=== PATIENT | male | born 1945 | race Caucasian/White ===

== ENCOUNTER 2016-09-12 10:24 | Day surgery (SDC) | payer MEDICARE, BC ==
[2016-09-09 11:03] VITALS: BMI 47.1
[~2016-09-12 10:24] MED LIST: ALPRAZolam 0.25 MG TAB PO PRN; ALPRAZolam 0.5 MG TAB PO PRN; ASPIRIN 325 MG TAB PO STA; ATORVASTATIN 80 MG TAB PO STA; NITROGLYCERIN SL TABS 0.4 MG TAB SUBLINGUAL PRN; SODIUM CHLORIDE 0.9% 1,000 ML in EMPTY BAG 1 BAG IV ONE
[2016-09-12 11:41] LABS: Anisocytosis Slight; Basophils % (A) 0 %; CH 31.5; CHCM 33.3; Eosinophils # (A) 0.4 k/uL (0-0.7); Eosinophils % (A) 4 %; HCT 48.9 % (39.0-53.0); HDW 3.52; HGB 15.8 gm/dL (13.0-17.5); Luc # (Auto) 0.33; Luc % (Auto) 4; Lymphocytes # (A) 1.2 k/uL (1.0-4.8); Lymphocytes % (A) 13 %; MCH 30.7 pg (25.0-35.0); MCHC 32.3 g/dL (31.0-37.0); MCV 95.1 fL (80.0-100.0); Mean Platelet Volume 7.6; Monocytes # (A) 0.5 k/uL (0-1.0); Monocytes % (A) 6 %; Neutrophils # (A) 6.9 k/uL (1.3-7.7); Neutrophils % (A) 74 %; Poikilocytosis Slight; RBC 5.15 m/uL (4.30-5.90); RDW 17.1 % (11.5-15.5); WBC 9.3 k/uL (3.8-10.6); WBC (Perox) 9.52
[2016-09-12] MEDS ORDERED: MIDAZOLAM 2 MG/2 ML VIAL ONE (11:52)
[2016-09-12] MEDS ORDERED: VERAPAMIL 2.5 MG/ML 2 ML AMP ONE (11:53)
[2016-09-12] MEDS ORDERED: SODIUM CHLORIDE 0.9% (PF) 10 ML VIAL ONE (11:53)
[2016-09-12] MEDS ORDERED: HEPARIN SODIUM 1,000 UNIT/ML VIAL ONE (11:53)
[2016-09-12] MEDS ORDERED: LIDOCAINE 2% INJ 20 MG/ML (20 ML MDV) ONE (11:53)
[2016-09-12] MEDS ORDERED: diphenhydrAMINE 50 MG/ML 1 ML VIAL ONE (11:53)
[2016-09-12 11:58] LABS: Anion Gap 14 mmol/L; Blood Urea Nitrogen 26 mg/dL (9-20); Calcium 8.8 mg/dL (8.4-10.2); Carbon Dioxide 33 mmol/L (22-30); Chloride 94 mmol/L (98-107); Glucose 131 mg/dL (74-99); Non-African American GFR(MDRD) >60 (>60 ml/min/1.73 sqM); Potassium 3.9 mmol/L (3.5-5.1); Sodium 141 mmol/L (137-145)
[2016-09-12] MEDS ORDERED: MIDAZOLAM 2 MG/2 ML VIAL IV ONE (12:35)
[2016-09-12] MEDS ORDERED: diphenhydrAMINE 50 MG/ML 1 ML VIAL IVP ONE (12:35)
[2016-09-12] MEDS ORDERED: LIDOCAINE 2% INJ 20 MG/ML SQ ONE (12:36)
[2016-09-12] MEDS ORDERED: BIVALIRUDIN BOLUS 250 MG/50 ML IV ONE (13:08)
[2016-09-12] MEDS ORDERED: BIVALIRUDIN 250 MG in SODIUM CHLORIDE 0.9% 50 ML IV ONE (13:11)
[2016-09-12] MEDS ORDERED: CLOPIDOGREL 75 MG TAB ONE (13:14)
[2016-09-12] MEDS: niCARdipine Syringe (1,000 mcg/10 mL) INTRACORON ONE ×2 (13:15→13:19)
[2016-09-12] MEDS ORDERED: HYDROmorphone 2 MG/ML 1 ML SYRINGE ONE (13:21)
[2016-09-12] MEDS ORDERED: CLOPIDOGREL 75 MG TAB PO ONE (13:25)
[2016-09-12] MEDS ORDERED: HYDROmorphone 2 MG/ML 1 ML SYRINGE IV ONE (13:25)
[2016-09-12] MEDS ORDERED: ALBUTEROL NEBULIZED 2.5 MG/3 ML INHALATION PRN (13:31)
[2016-09-12] MEDS ORDERED: SYMBICORT 160-4.5 MCG INHALER INHALATION PRN (13:31)
[2016-09-12] MEDS ORDERED: IOHEXOL 350 MG/ML 100 ML BOTTLE INJ ONE (13:31)
[2016-09-12] MEDS ORDERED: NITROGLYCERIN SL TABS 0.4 MG TAB SUBLINGUAL PRN (13:32)
[2016-09-12] MEDS ORDERED: MAG HYDROX/AL HYDROX/SIMETH 30 ML CUP PO PRN (13:32)
[2016-09-12] MEDS ORDERED: ZOLPIDEM 5 MG TAB PO PRN (13:32)
[2016-09-12] MEDS ORDERED: RX INFO: IV CONTRAST WAS GIVEN 1 EACH MISC MISCELLANE PRN (13:32)
[2016-09-12] MEDS ORDERED: ATROPINE SULFATE 0.1 MG/ML 10ML SYRINGE IV PRN (13:32)
[2016-09-12] MEDS ORDERED: SODIUM CHLORIDE 0.9% 1,000 ML IV SCH (13:45)
[2016-09-12] MEDS ORDERED: HYDROmorphone 1 MG/ML 1 ML SYRINGE IVP STA (14:36)
[2016-09-12] MEDS: HYDROmorphone 1 MG/ML 1 ML SYRINGE IVP PRN ×2 (17:12→20:56)
[2016-09-12] MEDS: CARVEDILOL 3.125 MG TAB PO SCH (18:17)
[2016-09-12 18:35] VITALS: RESP 20
[2016-09-12] MEDS: GABAPENTIN 300 MG CAP PO SCH (20:56)
[2016-09-12] MEDS ORDERED: ATORVASTATIN 80 MG TAB PO SCH (21:00)
--- NOTE | 2016-09-12 22:07 | CC ---
DATE OF SERVICE: 09/12/2016 PERFORMING PHYSICIAN: Maco Downs M.D., fishing game w[employer]. PROCEDURES PERFORMED: 1. Selective left and right coronary angiogram. 2. Saphenous vein graft to left circumflex angiogram. 3. Left subclavian angiogram. 4. Aortic root angiogram. 5. Successful stenting of the saphenous vein graft to left circumflex using a 4.5 x 15 mm bare-metal stent, with good angiographic results. INDICATION: This is a pleasant 71-year-old gentleman with a known history of coronary artery disease and prior coronary artery bypass grafting with unknown details about the anatomy of the ( ) was experiencing progressive exertional dyspnea. He underwent a myocardial perfusion imaging stress test which showed lateral ischemia. He was scheduled to undergo a heart catheterization to rule out any severe underlying CAD. APPROACH: Right common femoral artery. COMPLICATIONS: None. LEVEL OF SEDATION: Moderate. PROCEDURE DESCRIPTION: After obtaining informed consent, the patient was brought to the cardiac slabber light. The right common femoral artery was cannulated using micropuncture technique. The micropuncture wire passed easily, then I placed a 6 English sheath in the right common femoral artery. Subsequently I did selective left and right coronary angiogram using JL4.5 and JR4 catheters. After that, I did SVG angiogram to left circumflex using the JR4 catheter. I tried engaging the SVG to RCA using multipurpose catheter, but I was unable. Then I did aortic root angiogram using a 6 English pigtail catheter, and I was unable to visualize any SVG to the RCA. I tried engaging the TROY, but the left subclavian was so tortuous that I was unable to reach the TROY, so I did selective left subclavian angiogram, which showed flow in the TROY. After reviewing everything, I decided to intervene on the SVG on the left circumflex. Please see separate paragraph for that. SELECTIVE CORONARY ANGIOGRAM: 1. The left main is a short left main and a large left main and seems to be angiographically normal. It bifurcates into the left circumflex and left anterior descending artery. 2. The left circumflex is 100% occluded proximally. 3. The LAD is 100% occluded proximally as well. 4. The RCA is 100% occluded proximally as well. CORONARY BYPASS ANGIOGRAM: 1. The SVG to the left circumflex is patent with critical disease involving the proximal to mid portion. 2. The TROY to LAD was not well visualized, but there is a flow in it. PERCUTANEOUS CORONARY INTERVENTION OF THE SAPHENOUS VEIN GRAFT TO LEFT CIRCUMFLEX: Anticoagulation was initiated using Angiomax. Subsequently I took JR4 guide and the graft was engaged. I used a Whisper wire to wire that graft. Subsequently I did direct stenting on the lesion using a 4.5 x ( ) mm stent, where the stent was positioned under fluoroscopy guidance, then it was deployed under 18 atmospheres for 30 seconds. The following angiogram showed good angiographic results. There was residual stenosis involving the distal anastomosis of the bypass of about 60%. I decided to leave it alone. CONCLUSION: 1. Severe triple-vessel coronary artery disease with occluded LAD, left circumflex and RCA. 2. Patent TROY to LAD. 3. Critical disease involving the SVG to left circumflex. 4. I was unable to visualize any vein graft to the right coronary artery. 5. Successful stenting of the SVG to left circumflex using a 4.5 x ( ) mm bare-metal stent, with good angiographic results. Post-procedure management will be: 1. Dual antiplatelet therapy. 2. Risk factor modification. 3. Followup with the patient.
[2016-09-12 22:30] LABS: Anisocytosis Slight; Basophils % (A) 0 %; CH 31.4; CHCM 32.6; Eosinophils # (A) 0.2 k/uL (0-0.7); Eosinophils % (A) 2 %; HCT 48.2 % (39.0-53.0); HDW 3.46; HGB 15.5 gm/dL (13.0-17.5); Hypochromasia Slight; Luc # (Auto) 0.34; Luc % (Auto) 3; Lymphocytes % (A) 8 %; MCHC 32.1 g/dL (31.0-37.0); MCV 96.6 fL (80.0-100.0); Macrocytosis Slight; Mean Platelet Volume 7.6; Monocytes # (A) 0.6 k/uL (0-1.0); Monocytes % (A) 5 %; Neutrophils # (A) 10.4 k/uL (1.3-7.7); Neutrophils % (A) 83 %; Poikilocytosis Slight; RBC 4.99 m/uL (4.30-5.90); RDW 17.1 % (11.5-15.5); WBC 12.6 k/uL (3.8-10.6); WBC (Perox) 12.71
[2016-09-13] MEDS: HYDROmorphone 1 MG/ML 1 ML SYRINGE IVP PRN ×2 (02:45→07:03)
[2016-09-13 06:21] LABS: Anisocytosis Slight; Basophils % (A) 0 %; CH 31.3; CHCM 32.4; Eosinophils # (A) 0.2 k/uL (0-0.7); Eosinophils % (A) 2 %; HCT 45.9 % (39.0-53.0); HDW 3.37; HGB 14.6 gm/dL (13.0-17.5); Hypochromasia Slight; Luc # (Auto) 0.33; Luc % (Auto) 3; Lymphocytes # (A) 0.8 k/uL (1.0-4.8); Lymphocytes % (A) 8 %; MCH 30.9 pg (25.0-35.0); MCHC 31.9 g/dL (31.0-37.0); Macrocytosis Slight; Mean Platelet Volume 7.5; Monocytes # (A) 0.7 k/uL (0-1.0); Monocytes % (A) 7 %; Neutrophils # (A) 8.2 k/uL (1.3-7.7); Neutrophils % (A) 80 %; RBC 4.73 m/uL (4.30-5.90); WBC 10.2 k/uL (3.8-10.6)
[2016-09-13 06:33] LABS: Anion Gap 13 mmol/L; Blood Urea Nitrogen 24 mg/dL (9-20); Carbon Dioxide 32 mmol/L (22-30); Chloride 95 mmol/L (98-107); Glucose 136 mg/dL (74-99); Non-African American GFR(MDRD) >60 (>60 ml/min/1.73 sqM); Potassium 3.5 mmol/L (3.5-5.1); Sodium 140 mmol/L (137-145)
[2016-09-13] MEDS: CARVEDILOL 3.125 MG TAB PO SCH (07:03)
[2016-09-13] MEDS: GABAPENTIN 300 MG CAP PO SCH (08:17)
[2016-09-13] MEDS ORDERED: ASPIRIN 81 MG CHEW PO SCH (09:00)
[2016-09-13] MEDS ORDERED: ISOSORBIDE MONONITRATE ER 30 MG TAB.ER.24H PO SCH (09:00)
[2016-09-13] MEDS ORDERED: ALLOPURINOL 300 MG TAB PO SCH (09:00)
[2016-09-13] MEDS ORDERED: HYDROcodone/APAP 5-325MG 1 EACH TAB PO PRN (09:40)
[2016-09-13] MEDS ORDERED: CALCIUM CARB-VIT D 500MG-200UN 1 EACH TAB PO SCH (12:00)
[2016-09-13] MEDS ORDERED: MULTIVITAMINS, THERA 1 EACH TAB PO SCH (12:00)
[2016-09-13] MEDS ORDERED: ASCORBIC ACID 500 MG TAB PO SCH (12:00)
[2016-09-13] MEDS ORDERED: CLOPIDOGREL 75 MG TAB PO SCH (12:00)
[2016-09-13 12:01] VITALS: BP 113/67; PULSE 82; TEMP 97.8
--- NOTE | 2016-09-13 21:59 | DS ---
DATE OF ADMISSION: 09/12/2016 DATE OF DISCHARGE: 09/13/2016 BRIEF HISTORY: This is a pleasant 77-year-old gentleman who is known to have CAD and prior CABG was experiencing exertional dyspnea. He underwent myocardial perfusion imaging stress test which showed anterolateral ischemia. He underwent heart catheterization yesterday which showed severe disease involving the SVG to LCx. He underwent successful stenting of that graft with a good angiographic result and without any complication. The procedure was performed from the right groin. He developed some right hematoma yesterday but seems to be better today. He is going to be discharged on dual antiplatelet therapy and I will follow up with the patient as an outpatient in a week.
== END 2016-09-13 12:45 | disposition home or self-care (01) ==
LOC: CATHCVL 10:24 → 6SEL 13:30 → CATHCVL 09-13 12:45
PROVIDERS: ATTEND Internal Medicine Interventional Cardiology
DX: I25.700 Atherosclerosis of coronary artery bypass graft(s), unspecified, with unstable angina pectoris (principal); I25.110 Atherosclerotic heart disease of native coronary artery with unstable angina pectoris; Z95.1 Presence of aortocoronary bypass graft; I25.82 Chronic total occlusion of coronary artery; R94.39 Abnormal result of other cardiovascular function study; E78.5 Hyperlipidemia, unspecified; R60.0 Localized edema; E66.3 Overweight; J44.9 Chronic obstructive pulmonary disease, unspecified; I10 Essential (primary) hypertension; E78.00 Pure hypercholesterolemia, unspecified; Z79.82 Long term (current) use of aspirin; Z79.899 Other long term (current) drug therapy; Z87.891 Personal history of nicotine dependence
CPT/HCPCS: 93005; 93455; 93567; 92937; 80048 ×2; 85025 ×2; C1876; C1769 ×4; C1887; C1894 ×2; J2001; J2250; J1170 ×3; J1200; Q9967; J0583

== ENCOUNTER → 2016-12-23 | Outpatient (CLI) | payer MEDICARE, BC ==
[2016-12-23 12:00] LABS: Blood Urea Nitrogen 21 mg/dL (9-20); Non-African American GFR(MDRD) >60 (>60 ml/min/1.73 sqM)
--- NOTE | 2016-12-23 22:52 | CT ---
EXAMINATION TYPE: CT chest w con DATE OF EXAM: 12/23/2016 1:19 PM COMPARISON: NONE HISTORY: Shortness of breath per ordering an patient. History of coronary bypass and coronary stents per patient. CT DLP: 1273.2 mGycm. Automated Exposure Control for Dose Reduction was Utilized. TECHNIQUE: CT scan of the thorax is performed following with IV Contrast, patient injected with 100 mL of Omnipaque 300. FINDINGS: LUNGS: Small area of round atelectasis lateral left lower lung on coronal image 52 is noted. Linear s carring centrally is present. There is right basilar linear scarring and/or atelectasis is identified . No pleural effusion or pneumothorax is seen bilaterally. No suspicious groundglass opacity or conso lidation is present. No concerning nodule or mass is present. Tracheobronchial tree is patent. MEDIASTINUM: Post CABG changes with mediastinal clips and sternal wires is present. There are no grea ter than 1 cm hilar or mediastinal lymph nodes. Prominent but subcentimeter pericarinal and AP window lymph nodes are identified. No pericardial effusion is seen. There is cardiomegaly with mild to mod erate biatrial dilatation. Ascending aorta measures up to 4.4 cm in diameter and sagittal image 52. E ctasia at aortic root measures up to 4.2 cm on sagittal image 68. There is mild calcified plaque in t he visualized aorta. Main pulmonary artery measures 3.4 cm 3.4 in diameter on axial image 21. CT find ings consistent with underlying pulmonary artery hypertension. OTHER: Bilateral gynecomastia is seen. Low dense lesions scattered throughout both kidneys favor mult iple simple cysts, Hounsfield units are under 25 for all lesions. Consider renal ultrasound confirmat ion. IMPRESSION: 1. No suspicious acute pulmonary process. Scattered atelectatic change and/or scarring in both lung b ases. 2. Post CABG changes with cardiomegaly and mild to moderate biatrial dilatation. Underlying pulmonary artery hypertension is felt present. 3. Ascending aortic aneurysm measuring up to 4.4 cm in diameter.
== END | disposition home or self-care (01) ==
LOC: RADCTMAIN 11:28
PROVIDERS: ATTEND Internal Medicine Critical Care Medicine
DX: J98.11 Atelectasis (principal); J98.4 Other disorders of lung; I71.2 Thoracic aortic aneurysm, without rupture; I51.7 Cardiomegaly; I27.2 Other secondary pulmonary hypertension; Z95.1 Presence of aortocoronary bypass graft
CPT/HCPCS: 82565; 84520; 71260; 36415; Q9967